=== PATIENT | female | born 1945 | race Caucasian/White ===

== ENCOUNTER 2020-08-10 19:25 | Outpatient (CLI) | payer MEDICARE | END 2020-08-10 19:26 | disposition critical access hospital (66) | LOC: EMS 19:25 | DX: S00.03XA Contusion of scalp, initial encounter (principal); R41.0 Disorientation, unspecified; W10.9XXA Fall (on) (from) unspecified stairs and steps, initial encounter | CPT/HCPCS: A0425; A0427 ==

== ENCOUNTER 2020-08-10 20:03 | Observation (INO) | payer MEDICARE ==
[2020-08-10 20:24] LABS: BASOPHILS % (AUTO) 0.4 %; EOSINOPHILS # (AUTO) 0.2 10^3/uL (0.0-0.7); EOSINOPHILS % (AUTO) 1.5 %; HCT - HEMATOCRIT 41.2 % (37.0-47.0); LYMPHOCYTES # (AUTO) 2.9 10^3/uL (1.5-3.5); LYMPHOCYTES % (AUTO) 28.2 %; MEAN CORPUSCULAR HEMOGLOBIN 31.6 pg (27.0-31.0); MEAN PLATELET VOLUME 10.4 fL (7.9-10.8); MONOCYTES # (AUTO) 0.8 10^3/uL (0.0-1.0); MONOCYTES % (AUTO) 7.4 %; NEUTROPHILS # (AUTO) 6.2 10^3/uL (1.5-6.6); NEUTROPHILS % (AUTO) 61.1 %; PLT - PLATELET COUNT 239 10^3/uL (130-450); RED BLOOD COUNT 4.43 10^6/uL (4.20-5.40); RED CELL DISTRIBUTION WIDTH 12.5 % (12.0-15.0); WHITE BLOOD COUNT 10.1 x10^3/uL (4.8-10.8)
[2020-08-10 20:31] LABS: INR 1.1 (0.8-1.2); PT - PROTHROMBIN TIME 11.9 secs (9.9-12.6)
[2020-08-10 20:37] LABS: ALBUMIN 4.1 g/dL (3.2-5.5); ALBUMIN/GLOBULIN RATIO 1.6 (1.0-2.2); BILIRUBIN,TOTAL 0.8 mg/dL (0.2-1.0); CALCIUM 9.3 mg/dL (8.5-10.3); CREATININE 0.8 mg/dL (0.4-1.0); POTASSIUM 4.1 mmol/L (3.5-5.0); TOTAL PROTEIN 6.7 g/dL (6.7-8.2)
--- NOTE | 2020-08-10 21:15 | CT Report ---
PROCEDURE: HEAD WO INDICATIONS: fall/head injury/loc TECHNIQUE: Noncontrast 4.5 mm thick angled axial sections acquired from the foramen magnum to the vertex. For r adiation dose reduction, the following was used: automated exposure control, adjustment of mA and/or kV according to patient size. COMPARISON: None. FINDINGS: Image quality: There is mild motion artifact. CSF spaces: Basal cisterns are patent. No extra-axial fluid collections. There is mild cerebral vol ume loss with prominence of the ventricles and sulci. Brain: Evaluation slightly limited by patient positioning. No definite intracranial hemorrhage, mass or mass effect. Earl-white matter interface appears preserved. There are periventricular and subcort ical white matter hypodensities consistent with mild chronic small vessel ischemic changes. Skull and face: There is a large left posterior parietal subgaleal scalp hematoma. Calvarium and vis ualized facial bones appear intact. Sinuses: Visualized sinuses and mastoids are clear. IMPRESSION: 1. No definite acute intra-abdominal abnormality. 2. Large left posterior parietal subgaleal scalp hematoma. No evidence of associated calvarial fractu re. Reviewed by: Franck Ibanez MD on 08/10/2020 9:14 PM PDT Approved by: Franck Ibanez MD on 08/10/2020 9:14 PM PDT Station ID: [id number]
--- NOTE | 2020-08-10 21:18 | CT Report ---
PROCEDURE: CERVICAL SPINE WO INDICATIONS: fall/head injury/altered LOC TECHNIQUE: Noncontrast 3 mm thick sections acquired from the skull base to the T4 level. Sagittal and coronal r eformats were then constructed. For radiation dose reduction, the following was used: automated exp osure control, adjustment of mA and/or kV according to patient size. COMPARISON: None. FINDINGS: Image quality: Evaluation limited by positioning and motion artifact. Bones: No definite fracture or subluxation. There is minimal anterolisthesis at C4-C5 and C7-T1, lik gayatri degenerative in etiology. Multilevel degenerative disc disease demonstrated throughout the cervic al spine including moderate to severe degeneration at C6-C7 with endplate sclerosis and osteophytosis . There is also multilevel moderate facet arthropathy throughout the cervical spine. Visualized super ior ribs are intact. Soft tissues: Prevertebral soft tissues are normal in thickness. No paravertebral hematomas. No ap ical pneumothoraces. IMPRESSION: 1. Slightly limited study due to positioning and motion artifact demonstrates no definite fracture or subluxation. 2. Multilevel degenerative changes throughout the cervical spine including moderate to severe degener ative disc disease at C5-C6. Reviewed by: Franck Ibanez MD on 08/10/2020 9:17 PM PDT Approved by: Franck Ibanez MD on 08/10/2020 9:17 PM PDT Station ID: [id number]
--- NOTE | 2020-08-10 21:45 | ED Physician Documentation ---
PD HPI HEAD INJURY - Stated complaint Stated Complaint: FELL DOWN STAIRS, CONFUSED, HEAD HEMATOMA - Chief complaint Chief Complaint: Trauma Hd/Nk - History obtained from History obtained from: Patient, EMS - Additional information Additional information: Patient is brought to the emergency department by EMS after having a ground- level fall down the stairs With head injury and LOC. Patient is not really clear on what happened or how it happened. She appears to be staying at a nearby [facility] according to medics, who state there was a suitcase in the patient's room and foot of the stairs. A friend, who was staying with her, found her and called EMS. Medics noted a large hematoma in the posterior left scalp. The patient denies any complaints. She states she does not know why she is here and wants to go home. She is amnestic to the event and has had some progressive amnesia, as well according to medics. Review of Systems Ten Systems: 10 systems reviewed and negative Constitutional: reports: Reviewed and negative Eyes: reports: Reviewed and negative Ears: reports: Reviewed and negative Nose: reports: Reviewed and negative Throat: reports: Reviewed and negative Cardiac: reports: Reviewed and negative Respiratory: reports: Reviewed and negative GI: reports: Reviewed and negative : reports: Reviewed and negative Skin: reports: Reviewed and negative Musculoskeletal: reports: Reviewed and negative Neurologic: reports: Head injury, LOC Psychiatric: reports: Reviewed and negative Endocrine: reports: Reviewed and negative Immunocompromised: reports: Reviewed and negative PD PAST MEDICAL HISTORY - Allergies Allergies/Adverse Reactions: Allergies Allergy/AdvReac Type Severity Reaction Status Date / Time Unable to Assess Allergy Verified 08/10/20 20:14 - Social History Does the pt smoke?: No Smoking Status: Never smoker PD ED PE NORMAL - Vitals Vital signs reviewed: Yes - General General: No acute distress, Well developed/nourished, Other (Patient is alert and pleasant. 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 However, she exhibits repetitive questioning, though throughout the course of my exam does begin to remember my answering the questions before.) - Psych Psych: Normal mood, Normal affect Results - Vitals Vitals: Vital Signs - 24 hr 08/10/20 08/10/20 20:14 20:24 Temperature 36.5 C 36.5 C Heart Rate 90 90 Respiratory 16 16 Rate Blood Pressure 125/67 125/67 O2 Saturation 94 94 Oxygen O2 Source Room air - Labs Labs: Laboratory Tests 08/10/20 08/10/20 08/10/20 20:15 20:15 20:15 WBC 10.1 RBC 4.43 Hgb 14.0 Hct 41.2 MCV 93.0 MCH 31.6 H MCHC 34.0 RDW 12.5 Plt Count 239 MPV 10.4 Neut # (Auto) 6.2 Lymph # (Auto) 2.9 [place] # (Auto) 0.8 Eos # (Auto) 0.2 Baso # (Auto) 0.0 Absolute Nucleated RBC 0.00 Nucleated RBC % 0.0 PT 11.9 INR 1.1 Sodium 140 Potassium 4.1 Chloride 105 Carbon Dioxide 22 Anion Gap 13.0 BUN 22 H Creatinine 0.8 Estimated GFR (MDRD) 70 L Glucose 139 H Calcium 9.3 Total Bilirubin 0.8 AST 18 ALT 19 Alkaline Phosphatase 70 Total Protein 6.7 Albumin 4.1 Globulin 2.6 Albumin/Globulin Ratio 1.6 Lipase 32 PD MEDICAL DECISION MAKING - ED course Complexity details: reviewed results, re-evaluated patient, considered differential, d/w patient ED course: The patient was worked up with CT scans of the head and neck, which were unremarkable. Her c-collar was just continued at that point. Labs were also unremarkable. Patient was evaluated by Dr. Gray, who agreed to admit her for observation to his service. Final impression: 1. Closed head injury 2. Concussion Disposition admitted for observation and serious condition. Departure - Departure Disposition: ED Place in Observation Discharge Date/Time: 08/10/20 23:06
[2020-08-10] MEDS ORDERED: ACETAMINOPHEN 325 MG TABLET PO PRN (22:08)
[2020-08-10] MEDS ORDERED: ONDANSETRON ODT 4 MG TABLET TL PRN (22:08)
[2020-08-10] MEDS ORDERED: SODIUM CHLORIDE FLUSH 0.9% 10 ML SYRINGE IVP PRN (22:08)
[2020-08-10] MEDS ORDERED: oxyCODONE 5 MG TABLET PO PRN (22:08)
[2020-08-10] MEDS ORDERED: MAG HYDROX/AL HYDROX/SIMETH 30 ML UDC PO PRN (22:12)
--- NOTE | 2020-08-10 22:18 | HISTORY & PHYSICAL EXAMINATION ---
Chief Complaint - Chief Complaint Chief Complaint: fall History of Present Illness - Admitted From Admitted From:: ED - History Obtained From Records Reviewed: yes History obtained from: paramedics and pt Exam Limitations: none - History of Present Illness HPI Comment/Other: Witnessed fall down stairs and had loss of consciousness for about 2 minutes. Paramedics arrived and lost consciousness second time. Brought to ED. Perseverating and not able to name common objects. Meds/Allgy - Allergies Allergies/Adverse Reactions: Allergies Allergy/AdvReac Type Severity Reaction Status Date / Time Unable to Assess Allergy Verified 08/10/20 20:14 Review of Systems - Constitutional Constitutional: reports: Fatigue (10 pt ros as above otherwise unremarkable) Exam - Vital Signs Reviewed Vital Signs: Yes Vital Signs: Vital Signs x48h Temp Pulse Resp BP Pulse Ox 08/10/20 20:24 36.5 C 90 16 125/67 94 08/10/20 20:14 36.5 C 90 16 125/67 94 - Physical Exam General Appearance: positive: No acute distress, Alert Eyes Bilateral: positive: PERRL, EOMI Neck: positive: No JVD, Trachea midline Respiratory: positive: No respiratory distress, Breath sounds nml Cardiovascular: positive: Regular rate & rhythm Abdomen: positive: Non-tender, No distention Skin: positive: Other (ecchymosis left posterior hand small posterior scalp hematoma) Extremities: positive: Non-tender, Full ROM Neurologic/Psychiatric: positive: Oriented x3 Conclusion/Plan - Lab Results Fish Bones: 08/10/20 20:15 08/10/20 20:15 - Other Other Results/Comments: fall with loss of consciousness. initially confused and unable to speak clearly. On arrival to ED alert and responding appropriately. Neg work up including head ct. Plan admit observation
[2020-08-10] MEDS ORDERED: D5.45NS W/20 MEQ KCL 1,000 ML IV SCH (23:00)
[2020-08-10 23:13] LABS: B. PARAPERTUSSIS- RESP PCR PAN NOT DETECTED; B. PERTUSSIS- RESP PCR PANEL NOT DETECTED; C. PNEUMONIAE- RESP PCR PANEL NOT DETECTED; CORONAVIRUS 229E-RESP PCR NOT DETECTED; CORONAVIRUS HKU1-RESP PCR NOT DETECTED; CORONAVIRUS NL63-RESP PCR NOT DETECTED; CORONAVIRUS OC43-RESP PCR NOT DETECTED; HUMAN METAPNEUMOVIRUS NOT DETECTED; INFLUENZA A- RESP PCR PANEL NOT DETECTED; INFLUENZA B - RESP PCR PANEL NOT DETECTED; M. PNEUMONIAE- RESP PCR PANEL NOT DETECTED; PARAINFLUENZA VIRUS 1 NOT DETECTED; PARAINFLUENZA VIRUS 2 NOT DETECTED; PARAINFLUENZA VIRUS 3 NOT DETECTED; PARAINFLUENZA VIRUS 4 NOT DETECTED; RHINOVIRUS/ENTEROVIRUS NOT DETECTED; RSV- RESP PCR PANEL NOT DETECTED; SARS-CoV-2 -RESP PCR PANEL NOT DETECTED
[2020-08-11] MEDS: SODIUM CHLORIDE FLUSH 0.9% 10 ML SYRINGE IVP SCH ×2 (02:20→08:42)
[2020-08-11 09:42] VITALS: BP 136/67
--- NOTE | 2020-08-11 11:45 | Discharge Plan ---
Discharge Plan Problem Reviewed?: Yes Disposition: 01 Home, Self Care Condition: Good Diet: Regular Activity Restrictions: No Restrictions Shower Restrictions: No Driving Restrictions: Yes (no driving for a few days) Plan of Treatment: Follow up with your primary care doctor as needed Assessment: doing well after fall and concussion No Smoking: If you smoke, Please STOP! Call for help.
--- NOTE | 2020-08-11 11:47 | DISCHARGE SUMMARY ---
"Discharge Summary Admit Date: 08/10/20 Discharge Date: 08/11/20 Discharging Provider: fabiola ramirez md Code Status: Attempt Resuscitation - DIAGNOSES Admission Diagnoses: fall with loss of conscious and concussion Discharge Diagnoses with Status of Each Condition: home in good condition - HPI History of Present Illness: fall with loss of conscious. No brain injury by ct scan. - CONSULTS | PROCEDURES Procedures: observation - HOSPITAL COURSE Hospital Course: unremarkable. home with normal mentation and no apparent serious injury. - ALLERGIES Allergies/Adverse Reactions: Allergies Allergy/AdvReac Type Severity Reaction Status Date / Time Unable to Assess Allergy Verified 08/10/20 20:14 - PHYSICAL EXAM AT DISCHARGE General Appearance: positive: Alert Eyes Bilateral: positive: PERRL, EOMI ENT: positive: No signs of dehydration Neck: positive: No JVD Respiratory: positive: No respiratory distress Abdomen: positive: Non-tender, No distention Extremities: positive: Full ROM, Other (no apparent fractures) Neurologic/Psychiatric: positive: Oriented x3 - LABS Result Diagrams: 08/10/20 20:15 08/10/20 20:15 - FOLLOW UP Follow Up: primary care doctor"
== END 2020-08-11 14:34 | disposition home or self-care (01) ==
LOC: ED 20:03 → MS2 22:08
PROVIDERS: ADMIT Surgery; ATTEND Surgery
DX: S06.0X1A Concussion with loss of consciousness of 30 minutes or less, initial encounter (principal); S00.03XA Contusion of scalp, initial encounter; W10.9XXA Fall (on) (from) unspecified stairs and steps, initial encounter; Y92.009 Unspecified place in unspecified non-institutional (private) residence as the place of occurrence of the external cause; Z20.822 Contact with and (suspected) exposure to COVID-19
CPT/HCPCS: 36415; 70450; 72125; 80053; 83690; 85025; 85610; 87631; 96365; 96366; 99285; A9270; G0378; 0202U